=== PATIENT | male | born 1970 | race Caucasian/White ===

== ENCOUNTER 2016-06-20 20:31 | Emergency (ER) | payer SELFPAY ==
[~2016-06-20] VITALS: Ht 188 cm; Wt 104.6 kg
[~2016-06-20 20:31] MED LIST: AMOXIL500 MG OR; FENTANYL50 MCG/HR TD; FLEXERIL OR; FLEXERIL PO; GABAPENTIN300 MG PO; LORTAB 10 OR; LORTAB 5 OR; LORTAB 5/3255 MG PO; LORTAB 7.5 OR; MOTRIN400 MG OR; NAPROSYN500 MG OR; NAPROXEN250 MG PO; NO HOME MEDS; NORCO1 TAB PO; SOMA350 MG OR; TORADOL PO; TYLENOL500 MG OR; ULTRAM50 M1 PO; ULTRAM50 MG OR; UNK MUSCLE RELAXER; VICOPROFEN OR; ZOFRAN ODT4 MG PO
[2016-06-20 22:12] VITALS: BP 132/83
[2016-06-20] MEDS ORDERED: KEFLEX500 MG PO (22:29)
[2016-06-20] MEDS ORDERED: TYLENOL # 31 TAB PO (22:29)
== END 2016-06-20 23:01 | disposition home or self-care (01) | DRG 605 ==
LOC: ED 20:31
DX: S61.211A Laceration without foreign body of left index finger without damage to nail, initial encounter (principal); W22.09XA Striking against other stationary object, initial encounter; Y93.89 Activity, other specified; Y92.007 Garden or yard of unspecified non-institutional (private) residence as the place of occurrence of the external cause

== ENCOUNTER 2016-07-30 21:03 | Emergency (ER) | payer OTHER ==
[~2016-07-30] VITALS: Ht 188 cm; Wt 104.5 kg
[~2016-07-30 21:03] MED LIST changes: +KEFLEX500 MG PO; +TYLENOL # 31 TAB PO
[2016-07-31 03:04] VITALS: BP 132/65
== END 2016-07-31 03:14 | disposition home or self-care (01) | DRG 605 ==
LOC: ED 21:03
DX: S30.0XXA Contusion of lower back and pelvis, initial encounter (principal); M62.830 Muscle spasm of back; S70.02XA Contusion of left hip, initial encounter; S66.812A Strain of other specified muscles, fascia and tendons at wrist and hand level, left hand, initial encounter; S16.1XXA Strain of muscle, fascia and tendon at neck level, initial encounter; W11.XXXA Fall on and from ladder, initial encounter; Y93.89 Activity, other specified; Y92.007 Garden or yard of unspecified non-institutional (private) residence as the place of occurrence of the external cause

== ENCOUNTER 2017-04-09 19:49 | Emergency (ER) | payer OTHER ==
[~2017-04-09] VITALS: Ht 188 cm; Wt 113.0 kg
[2017-04-09 21:12] LABS: HEMATOCRIT 41.5 % (39.0-50.0); HEMOGLOBIN 14.5 g/dl (14.0-18.0); IMMATURE GRANULOCYTES 0.5 % (0.0-1.0); MEAN CELL VOLUME 88.3 fL CALC (80.0-100.0); MEAN CORPUSCULAR HGB 30.9 pG CALC (26.0-32.0); MEAN CORPUSCULAR HGB CONC 34.9 g/L CALC (32.0-36.0); NEUT# 10.75 thou/uL (1.82-7.42); RED BLOOD COUNT 4.7 mill/uL (4.70-6.10); RED CELL DISTRI WIDTH 12.3 % (11.5-15.5)
[2017-04-09 21:30] LABS: ALKALINE PHOSPHATASE 84 u/l (38-126); ANION GAP 16 (6-22 (CALC)); BILIRUBIN, TOTAL 1.2 mg/dL (0.0-1.4); BUN 13 mg/dL (9-20); BUN/CREATININE RATIO 16 (12-20 (CALC)); CALCIUM 9.1 mg/dL (8.4-10.2); CARBON DIOXIDE 22 mmol/l (22-30); CHLORIDE 105 mmol/l (95-108); CREATININE 0.8 mg/dL (0.7-1.3); GFR > 60 ML/MIN (>=60 (CALC)); GFR FOR AFR.AMER. > 60 ML/MIN (>=60 (CALC)); GLUCOSE 144 mg/dL (75-110); POTASSIUM 3.6 mmol/l (3.5-5.1); SGOT/AST 16 u/l (17-59); SGPT/ALT 51 u/l (21-72); SODIUM 139 mmol/l (137-146); TOTAL PROTEIN 6.5 g/dL (6.3-8.2)
[2017-04-09 22:35] LABS: URINE BLOOD DIPSTICK LARGE (NEGATIVE); URINE GLUCOSE - DIPSTICK 100 mg/dL (NEGATIVE); URINE KETONE TRACE mg/dL (NEGATIVE); URINE PROTEIN - DIPSTICK 100 mg/dL (NEG-TRACE); URINE SPECIFIC GRAVITY >=1.030; URINE UROBILINOGEN - DIPSTICK >=8.0 E.U./dL (0.2)
[2017-04-09 22:44] LABS: URINE BILIRUBIN - DIPSTICK SMALL (NEGATIVE); URINE CLARITY CLEAR; URINE COLOR ORANGE; URINE LEUK ESTERASE SMALL (NEGATIVE); URINE NITRITE - DIPSTICK POSITIVE (Negative)
[2017-04-09 22:48] LABS: URINE BACTERIA FEW hpf; URINE WBC TNTC WBC/hpf (0-5)
[2017-04-10] MEDS ORDERED: PYRIDIUM200 MG PO (00:09)
[2017-04-10] MEDS ORDERED: Levaquin PO (00:09)
[2017-04-10 00:34] VITALS: BP 104/68
== END 2017-04-10 00:34 | disposition home or self-care (01) | DRG 690 ==
LOC: ED 19:49
PROVIDERS: Emergency Medicine
DX: N39.0 Urinary tract infection, site not specified (principal); R11.0 Nausea; R50.9 Fever, unspecified; R30.0 Dysuria; R35.0 Frequency of micturition
CPT/HCPCS: J1956

== ENCOUNTER 2021-08-31 12:58 | Emergency (ER) | payer SELFPAY ==
[~2021-08-31] VITALS: Ht 188 cm; Wt 90.7 kg
[~2021-08-31 12:58] MED LIST changes: +Levaquin PO; +PYRIDIUM200 MG PO
[2021-08-31] MEDS ORDERED: IBUPROFEN600 MG PO (14:49)
[2021-08-31] MEDS ORDERED: FLEXERIL5 M1 PO (14:49)
[2021-08-31 15:08] VITALS: BP 144/90
== END 2021-08-31 15:21 | disposition home or self-care (01) | DRG 605 ==
LOC: ED 12:58
DX: S00.83XA Contusion of other part of head, initial encounter (principal); M54.2 Cervicalgia; F17.200 Nicotine dependence, unspecified, uncomplicated; W01.0XXA Fall on same level from slipping, tripping and stumbling without subsequent striking against object, initial encounter; Y92.009 Unspecified place in unspecified non-institutional (private) residence as the place of occurrence of the external cause

== ENCOUNTER 2023-09-27 10:36 | Emergency (ER) | payer OTHER ==
[~2023-09-27] VITALS: Ht 188 cm; Wt 85.7 kg
[~2023-09-27 10:36] MED LIST changes: +FLEXERIL5 M1 PO; +IBUPROFEN600 MG PO
[2023-09-27 10:48] VITALS: BP 143/87
[2023-09-27 11:00] VITALS: BP 134/76
[2023-09-27] MEDS ORDERED: KETOROLAC TROMETHAMINE 30 MG/ML SDV IM ONE (11:00)
[2023-09-27] MEDS ORDERED: diazePAM 10 MG/2 ML VIAL IM ONE ×2 (11:00→15:00)
[2023-09-27] MEDS ORDERED: DEXAMETHASONE SOD. PHOSPHATE 10 MG/ML VIAL IM ONE (11:00)
[2023-09-27 11:15] VITALS: BP 108/67
[2023-09-27 11:30] VITALS: BP 124/78
[2023-09-27] MEDS ORDERED: HYDROmorphone HCL 2 MG/TAB PO ONE (15:00)
[2023-09-27 15:31] VITALS: BP 124/78
== END 2023-09-27 15:32 | disposition left against medical advice (07) | DRG 552 ==
LOC: ED 10:36
DX: M47.26 Other spondylosis with radiculopathy, lumbar region (principal); L76.22 Postprocedural hemorrhage of skin and subcutaneous tissue following other procedure; E11.9 Type 2 diabetes mellitus without complications; I25.2 Old myocardial infarction; F17.210 Nicotine dependence, cigarettes, uncomplicated; Z95.5 Presence of coronary angioplasty implant and graft; Z87.442 Personal history of urinary calculi; Z53.29 Procedure and treatment not carried out because of patient's decision for other reasons; F17.200 Nicotine dependence, unspecified, uncomplicated; Y84.8 Other medical procedures as the cause of abnormal reaction of the patient, or of later complication, without mention of misadventure at the time of the procedure

== ENCOUNTER 2023-09-27 18:44 | Emergency (ER) | payer OTHER | END 2023-09-27 19:00 | disposition left against medical advice (07) | DRG 951 | LOC: ED 18:44 → LWOBS 19:00 | DX: Z53.21 Procedure and treatment not carried out due to patient leaving prior to being seen by health care provider (principal) ==

== ENCOUNTER 2023-09-27 19:22 | Emergency (ER) | payer OTHER ==
[~2023-09-27] VITALS: Ht 185.4 cm; Wt 86.0 kg
[2023-09-27 20:00] VITALS: BP 136/88
== END 2023-09-27 20:00 | disposition home or self-care (01) | DRG 921 ==
LOC: ED 19:22
DX: L76.22 Postprocedural hemorrhage of skin and subcutaneous tissue following other procedure (principal); E11.9 Type 2 diabetes mellitus without complications; I25.2 Old myocardial infarction; F17.200 Nicotine dependence, unspecified, uncomplicated; Y84.8 Other medical procedures as the cause of abnormal reaction of the patient, or of later complication, without mention of misadventure at the time of the procedure; Z95.5 Presence of coronary angioplasty implant and graft